=== PATIENT | female | born 1960 | race Caucasian/White ===

== ENCOUNTER 2024-01-25 14:02 | Emergency (ER) | payer MEDICAID, OTHER ==
[~2024-01-25] VITALS: Ht 162.6 cm; Wt 61.0 kg
[~2024-01-25 14:02] MED LIST: ACET500V PO; ATOR20TA65 PO; BRIM5DRO LEFTEYE; DORZ10DR9 LEFTEYE; LATA2.5D14 LEFTEYE; METF-414 PO; PRED5DRO7 RIGHTEYE; [UNRECOGNIZED DRUG - CODE] PO
[2024-01-25 14:04] VITALS: O2SAT 96
[2024-01-25] MEDS: MORPHINE SULFATE 4 MG/ML INJ (FOR IV/IM USE) IV STA (17:02)
[2024-01-25 17:17] LABS: BASOPHILS % 0.5 % (0.0-2.0); EOSINOPHILS % 0.9 % (0.0-5.0); HEMATOCRIT. 32.4 % (36.0-48.0); LYMPHOCYTES % 18.9 % (20.0-50.0); MEAN CORPUSCULAR HEMOGLOBIN 28.8 pg (28.0-32.0); MEAN CORPUSCULAR HGB CONC 33.8 g/dL (31.0-37.0); MEAN CORPUSCULAR VOLUME 85.2 fL (81.0-99.0); MEAN PLATELET VOLUME 7.1 fl (7.4-10.4); MONOCYTES % 7.9 % (2.0-8.0); NEUTROPHILS % 71.8 % (40.0-76.0); PLATELET 253 x1000/uL (130-400); WHITE BLOOD COUNT 7.4 x1000/uL (4.5-11.0)
[2024-01-25 17:21] LABS: CHLORIDE 106 mEq/L (98-107); POTASSIUM 4.2 mEq/L (3.5-5.1); SODIUM 139 mEq/L (136-145)
[2024-01-25 17:22] LABS: CARBON DIOXIDE 28 mEq/L (21-32)
[2024-01-25 17:23] LABS: CALCIUM 8.7 mg/dL (8.7-10.4)
[2024-01-25 17:27] LABS: CREATININE 1.4 mg/dL (0.6-1.0); GLUCOSE 233 mg/dL (70-105)
[2024-01-25 17:28] LABS: UREA NITROGEN BLOOD 16 mg/dL (9-23)
[2024-01-25 17:29] LABS: ALANINE AMINOTRANSFERASE 87 IU/L (10-49); ALBUMIN 3.6 g/dL (3.2-4.8); ASPARTATE AMINOTRANSFERASE 54 IU/L (<34)
[2024-01-25 17:30] LABS: BILIRUBIN TOTAL 0.3 mg/dL (0.1-1.0); PROTEIN TOTAL 5.7 g/dL (6.0-8.3)
[2024-01-25 17:50] LABS: INR 0.9; PROTHROMBIN TIME 10.4 sec (9.6-11.0)
[2024-01-25 20:33] VITALS: BP 119/64; PULSE 71; RESP 18; TEMP 98.3
== END 2024-01-25 21:53 | disposition short-term general hospital (02) ==
LOC: ER 14:02 → CANBEDREQ 19:43 → ER 21:53
DX: S72.351A Displaced comminuted fracture of shaft of right femur, initial encounter for closed fracture (principal); E11.9 Type 2 diabetes mellitus without complications; Z86.73 Personal history of transient ischemic attack (TIA), and cerebral infarction without residual deficits; W18.39XA Other fall on same level, initial encounter; Y93.89 Activity, other specified; Y92.89 Other specified places as the place of occurrence of the external cause; Y99.8 Other external cause status
CPT/HCPCS: 80053; 85025; 85610; 86850; 86900; 86901; 36415; 73552; 72170; 73562; 73610; 73620; 96374; 99285; J2270; Z7610